=== PATIENT | female | born 1940 | race Caucasian/White ===

== ENCOUNTER 2023-03-02 10:27 | Observation (INO) | payer MEDICARE, SELFPAY ==
[2023-03-02] VITALS (14 sets, daily range): BP systolic 108–200; BP diastolic 68–110; PULSE 55–79; RESP 16–20; TEMP 36.1–36.8; O2SAT 93–98; BMI 29.5
--- NOTE | 2023-03-02 10:34 | ECG_ITS ---
[facility] Test Date: 2023-03-02 Pat Name: Aaron Pruett Department: Room: Gender: Female [employer] Technician: : 1940 Requested By: Rivera Savage Order Number: [id number] Olaf MD: Manfred Spencer M.D. Measurements Intervals [place] Rate: 67 P: 45 NH: 159 QRS: 33 QRSD: 89 T: 40 QT: 402 QTc: 427 Interpretive Statements SINUS RHYTHM LOW QRS VOLTAGE IN PRECORDIAL LEADS [QRS DEFLECTION < 1.0 mV IN CHEST LEADS] MINIMAL ST DEPRESSION [0.025+ mV ST DEPRESSION] Compared to ECG 03/30/2015 14:41:57 Low QRS voltage now present ST (T wave) deviation now present Short NH interval no longer present Electronically Signed On 03-02-2023 10:57:03 CDT by Manfred Spencer M.D. [id number]
--- NOTE | 2023-03-02 10:34 | CTR_ITS ---
PROCEDURE INFORMATION: Exam: CTA Head With Contrast, Arteriography Exam date and time: 03/02/2023 10:43 AM Age: 82 years old Clinical indication: Stroke-like symptoms; Speech disturbance; Additional info: CVA TECHNIQUE: Imaging protocol: Computed tomographic angiography of the head with contrast. Exam focused on the arteries. 3D rendering (Not supervised by radiologist): MIP and/or 3D reconstructed images were created by the technologist. Radiation optimization: All CT scans at this facility use at least one of these dose optimization techniques: automated exposure control; mA and/or kV adjustment per patient size (includes targeted exams where dose is matched to clinical indication); or iterative reconstruction. Contrast material: OMNI 350; Contrast volume: 100 ml; Contrast route: INTRAVENOUS (IV); REPORTING DATA: Count of CT and Cardiac NM exams in prior 12 months: This patient has received 0 known CTs and 0 known cardiac nuclear medicine studies in the 12 months prior to the current study. COMPARISON: CT head thrombolytic [id number] 03/02/2023 10:37 AM RADIATION DOSE METRICS: Total DLP (mGy-cm): 428.45 FINDINGS: ANTERIOR CIRCULATION: Right internal carotid artery: Intracranial segment is patent with no significant stenosis. No aneurysm. Right middle cerebral artery: No occlusion or significant stenosis. No aneurysm. Right anterior cerebral artery: No occlusion or significant stenosis. No aneurysm. Left internal carotid artery: Intracranial segment is patent with no significant stenosis. No aneurysm. Left middle cerebral artery: No occlusion or significant stenosis. No aneurysm. Left anterior cerebral artery: No occlusion or significant stenosis. No aneurysm. POSTERIOR CIRCULATION: Right vertebral artery: No occlusion or significant stenosis. No aneurysm. Left vertebral artery: No occlusion or significant stenosis. No aneurysm. Basilar artery: No occlusion or significant stenosis. No aneurysm. Right posterior cerebral artery: No occlusion or significant stenosis. No aneurysm. Left posterior cerebral artery: No occlusion or significant stenosis. No aneurysm. Brain: Unchanged prominent brain sulci seen, related to the patient's age. Associated unchanged [id number] nonspecific periventricular white matter low attenuation areas.No definite mass, mass effect, or midline shift. Cerebral ventricles: Unchanged mildly dilated ventricles are seen. This may be related to the generalized brain parenchymal atrophy or could be related to normal pressure hydrocephalus. Recommend correlation with clinical exam findings and neurological findings. CSF nuclear cisternogram may be performed for complete assessment, if there is clinical concern. Bones/joints: Unremarkable. No acute fracture. Soft tissues: Unremarkable. PROCEDURE INFORMATION: Exam: CTA Neck With Contrast Exam date and time: 03/02/2023 10:43 AM Age: 82 years old Clinical indication: Stroke-like symptoms; Speech disturbance; Additional info: CVA TECHNIQUE: Imaging protocol: Computed tomographic angiography of the neck with contrast. 3D rendering (Not supervised by radiologist): MIP and/or 3D reconstructed images were created by the technologist. Radiation optimization: All CT scans at this facility use at least one of these dose optimization techniques: automated exposure control; mA and/or kV adjustment per patient size (includes targeted exams where dose is matched to clinical indication); or iterative reconstruction. Contrast material: OMNI 350; Contrast volume: 100 ml; Contrast route: INTRAVENOUS (IV); REPORTING DATA: Count of CT and Cardiac NM exams in prior 12 months: This patient has received 0 known CTs and 0 known cardiac nuclear medicine studies in the 12 months prior to the current study. COMPARISON: CT head thrombolytic [id number] 03/02/2023 10:37 AM RADIATION DOSE METRICS: Total DLP (mGy-cm): 428.45 FINDINGS: Right common carotid artery: No stenosis. No dissection or occlusion. Right internal carotid artery: Mild bulb calcified and soft plaque. No hemodynamically significant stenosis of the extracranial segment by NASCET criteria. No dissection or occlusion. Right external carotid artery: No occlusion or stenosis of the origin. Left common carotid artery: No stenosis. No dissection or occlusion. Left internal carotid artery: Mild bulb calcified and soft plaque. No hemodynamically significant stenosis of the extracranial segment by NASCET criteria. No dissection or occlusion. Left external carotid artery: No occlusion or stenosis of the origin. Right vertebral artery: No stenosis. No dissection or occlusion. Left vertebral artery: No stenosis. No dissection or occlusion. Soft tissues: Normal. No significant soft tissue swelling. Bones/joints: No acute fracture. CT/CT angio headneck* [id number] IMPRESSION: 1. No large vessel stenosis or occlusion. 2. Chronic changes, as noted above. IMPRESSION: No stenosis or occlusion. REFERENCES: NASCET CRITERIA. The degree of stenosis in the cervical segment of the internal carotid artery is based on NASCET criteria. Normal is no stenosis. Mild is less than 50% stenosis. Moderate is 50-69% stenosis. Severe is 70% to 99% stenosis. Total occlusion is no detectable patent lumen.
--- NOTE | 2023-03-02 10:34 | CTR_ITS ---
PROCEDURE INFORMATION: Exam: CT Head Without Contrast Exam date and time: 03/02/2023 10:37 AM Age: 82 years old Clinical indication: Stroke-like symptoms; Speech disturbance; Additional info: Symptoms of acute stroke TECHNIQUE: Imaging protocol: Computed tomography of the head without contrast. Radiation optimization: All CT scans at this facility use at least one of these dose optimization techniques: automated exposure control; mA and/or kV adjustment per patient size (includes targeted exams where dose is matched to clinical indication); or iterative reconstruction. Other technique: STROKE PROTOCOL was implemented. REPORTING DATA: Count of CT and Cardiac NM exams in prior 12 months: This patient has received 0 known CTs and 0 known cardiac nuclear medicine studies in the 12 months prior to the current study. COMPARISON: No relevant prior studies available. RADIATION DOSE METRICS: Total DLP (mGy-cm): 1046.98 FINDINGS: Brain: Mildly prominent brain sulci seen, related to the patient's age. Associated patchy [id number]-[id number] nonspecific periventricular white matter low attenuation areas. Some tiny bilateral basal ganglion old lacunar infarcts. There are no intracranial masses, mass effect or midline shift. There is no cerebral edema. There is no subarachnoid hemorrhage. There are no intra-or extra-axial fluid collections, intraventricular or intraparenchymal hemorrhage. No definite areas of low attenuation or wolfe-white matter junction obscuration seen on the noncontrast CT to suggest a subacute stroke - although the underlying white matter changes limit assessment. Cerebral ventricles: Mildly dilated ventricles are seen. This may be related to the generalized brain parenchymal atrophy or could be related to normal pressure hydrocephalus. Recommend correlation with clinical exam findings and neurological findings. CSF nuclear cisternogram may be performed for complete assessment, if there is clinical concern. The suprasellar and basilar cisterns appear unremarkable. Paranasal sinuses: The visualized sinuses are unremarkable. Mastoid air cells: The visualized mastoids are unremarkable. Orbital cavities: The visualized orbits are unremarkable. Bones/joints: No definite acute osseous or skull abnormalities seen. Soft tissues: Unremarkable. Notes: If there is further clinical concern for intracranial pathology, MRI of the brain may be performed for further assessment. CT/CT head thrombolytic [id number] IMPRESSION: 1. No non-contrast CT evidence of intracranial hemorrhage, masses or definite subacute stroke. MRI may be performed, if there is further clinical concern. 2. Chronic changes, as noted above. Mildly dilated ventricles, as noted above. ASSESSMENT: ASPECTS ([place] Stroke Program Early CT Score) is 10.
--- NOTE | 2023-03-02 10:34 | XRR_ITS ---
PROCEDURE INFORMATION: Exam: XR Chest Exam date and time: 03/02/2023 10:48 AM Age: 82 years old Clinical indication: Dyspnea; Additional info: CVA TECHNIQUE: Imaging protocol: Radiologic exam of the chest. Views: 1 view. COMPARISON: CT angio headneck* [id number] 03/02/2023 10:43 AM FINDINGS: Lungs: The exam appears to be an expiratory view with mild accentuation of the pulmonary vascularity. There are no confluent interstitial or airspace opacities. Age-related interstitial prominence is seen in the lungs. Pleural spaces: There are no pleural effusions or pneumothorax. Heart/Mediastinum: The heart size is normal. There is a mildly tortuous thoracic aorta. The trachea is in the midline. Bones/joints: No acute abnormalities. XR/XR chest 1V portable [id number] IMPRESSION: No confluent infiltrates in the lungs.
[2023-03-02] MEDS: iohexol 350 mg/mL 500 mL Btl (per mL) IV (10:46)
--- NOTE | 2023-03-02 10:46 | ED_ITS ---
HPI - Neuro Symptoms/Deficit General: Chief Complaint: Neuro Symptoms/Deficit Stated Complaint: Stoke like symptoms Time Seen by Provider: 03/02/23 10:30 Source: patient Mode of arrival: ambulatory Limitations: no limitations History of Present Illness: 82-year-old female states she went to bed last night at 1030 states when she woke up she noticed that she is having a hard time speaking. She states she is just been having a hard time finding words along with some slurred speech and her speech is slightly slurred here. She been able to ambulate she denies any weakness denies any vision changes. States she has had a mild headache today as well. Has a history of hypertension she states that she just took her blood pressure medicine she is hypertensive. Denies any chest pain. Associated symptoms: Reports headache(s); Deny chest pain, nausea or vomiting Review of Systems Const: Denies: fever(s), chills, body aches or change in appetite Eyes: Denies: blurry vision or eye discomfort ENMT: Denies: throat pain or dental pain Card: Denies: chest pain Resp: Denies: dyspnea GI: Denies: abdominal pain, nausea, vomiting or diarrhea Musc: Denies: neck pain or back pain Skin/Breast: Denies: rash Neuro: Reports: headache(s) and Slurred speech present NIH stroke score NIHSS: Level Of Consciousness - 1a: 0 Level Of Consciousness Questions - 1b: Both Correct Level Of Consciousness Commands - 1c: Both Correct Best Gaze - 2: Normal Visual Mcclain - 3: No Visual Loss Facial Palsy - 4: Normal Motor Arm Right - 5: No Drift Motor Arm Left - 5: No Drift Motor Leg Right - 6: No Drift Motor Leg Left - 6: No Drift Limb Ataxia - 7: Absent Sensory - 8: Normal Best Language - 9: Mild/Moderate Aphasia Dysarthia - 10: Mild/Moderate Dysarthia Extinction And Inattention - 11: 0 Score: Total Score: 2 Physical Exam Const: COMMON NORMALS: no acute distress, patient oriented x3 and healthy appearing HENMT: COMMON NORMALS: normocephalic and atraumatic HEAD & SCALP: normocephalic and atraumatic Eye: COMMON NORMALS: Equal, round and reactive pupils present and EOMs intact bilaterally PUPIL: Yes Equal, round and reactive pupils present Neck/C-Spine: COMMON NORMALS: full ROM and supple Chest: COMMONS NORMALS: normal inspection of the chest and normal palpation of entire chest wall Resp: COMMON NORMALS: normal respiratory effort, No retractions, No use of accessory muscles and clear to auscultation bilaterally AUSCULTATION: clear to auscultation bilaterally Cardio: COMMON NORMALS: regular rate, regular rhythm and No murmurs present (Cardio) RATE: regular rate RHYTHM: regular rhythm GI: COMMON NORMALS: Normal to inspection, nondistended, normoactive bowel sounds present, Soft to palpation, non-tender and no masses PALPATION: Yes Soft to palpation Extremity: COMMON NORMALS: normal to inspection and full ROM Neuro: COMMON NORMALS: patient oriented x3, moves all extremities and no focal motor deficits CRANIAL NERVES: Yes CN normal except as noted SPEECH: abnormal speech Details: slurred MOTOR EXAM: 5/5 motor strength present throughout Psych: COMMON NORMALS: mental status grossly normal, Normal thought process present and cooperative THOUGHT PROCESS: Normal thought process present Skin: COMMON NORMALS: no rashes or lesions noted and no wounds GENERAL SKIN EXAM: no rashes or lesions noted Course Vital Signs: Vital signs: Vital Signs Temperature 97.8 F 03/02/23 10:29 Pulse Rate 59 L 03/02/23 11:31 Respiratory Rate 20 H 03/02/23 11:31 Blood Pressure 156/78 03/02/23 11:31 Pulse Oximetry 96 03/02/23 11:31 Oxygen Delivery Me thod Room Air 03/02/23 11:31 MDM - Neuro Symptoms/Deficit Medical Decision Making Patient presents here with slurred speech possible stroke she is not a tPA candidate her last known normal was 10:[address] here are normal she has had some improvement of her symptoms but still some mild slurred speech spoke to hospitalist will admit for observation Medical Records I reviewed the patient's medical records. Lab Data I reviewed the patient's lab results. 03/02/23 10:40 03/02/23 10:40 Radiology Impressions Chest X-Ray 03/02/23 10:34 IMPRESSION: No confluent infiltrates in the lungs. Head CT 03/02/23 10:34 IMPRESSION: 1. No non-contrast CT evidence of intracranial hemorrhage, masses or definite subacute stroke. MRI may be performed, if there is further clinical concern. 2. Chronic changes, as noted above. Mildly dilated ventricles, as noted above. ASSESSMENT: ASPECTS ([place] Stroke Program Early CT Score) is 10. Head/Neck CTA 03/02/23 10:34 IMPRESSION: 1. No large vessel stenosis or occlusion. 2. Chronic changes, as noted above. IMPRESSION: No stenosis or occlusion. REFERENCES: NASCET CRITERIA. The degree of stenosis in the cervical segment of the internal carotid artery is based on NASCET criteria. Normal is no stenosis. Mild is less than 50% stenosis. Moderate is 50-69% stenosis. Severe is 70% to 99% stenosis. Total occlusion is no detectable patent lumen. Laboratory Results WBC 7.34 10^3/uL (3.29-11.43) 03/02/23 10:40 RBC 4.53 10^6/uL (3.85-5.65) 03/02/23 10:40 Hgb 14.10 g/dL (11.27-16.99) 03/02/23 10:40 Hct 41.7 % (36-47) 03/02/23 10:40 MCV 92.1 fl (85-98) 03/02/23 10:40 MCH 31.1 pg (27-33) 03/02/23 10:40 MCHC 33.8 g/dL (30-55) 03/02/23 10:40 RDW 12.9 % (12.1-15.1) 03/02/23 10:40 Plt Count 192 10^3/cmm (157-399) 03/02/23 10:40 MPV 9.7 fL (7.4-10.4) 03/02/23 10:40 Neut % (Auto) 57.8 % 03/02/23 10:40 Lymph % (Auto) 27.4 % 03/02/23 10:40 [place] % (Auto) 11.6 % 03/02/23 10:40 Eos % (Auto) 2.3 % 03/02/23 10:40 Baso % (Auto) 0.5 % 03/02/23 10:40 Neut # (Auto) 4.24 10^3/uL (1.8-7.7) 03/02/23 10:40 Lymph # (Auto) 2.0 10^3/uL (0.8-4.8) 03/02/23 10:40 [place] # (Auto) 0.9 10^3/uL (0.2-0.9) 03/02/23 10:40 Eos # (Auto) 0.2 10^3/uL (0.0-0.8) 03/02/23 10:40 Baso # (Auto) 0.0 10^3/uL (0.0-0.1) 03/02/23 10:40 Nucleated RBC % (auto) 0 % 03/02/23 10:40 Nucleated RBCs # 0.0 /100WBC 03/02/23 10:40 PT 13.50 SECONDS (12.1-14.9) 03/02/23 10:40 INR 1.00 (0.8-1.2) 03/02/23 10:40 APTT 26.9 SECONDS (23.9-36.7) 03/02/23 10:40 Sodium 141 mmol/L (136-145) 03/02/23 10:40 Potassium 4.4 mmol/L (3.5-5.1) 03/02/23 10:40 Chloride 104 mmol/L (98-107) 03/02/23 10:40 Carbon Dioxide 28 mmol/L (22-29) 03/02/23 10:40 Anion Gap 13.4 (5-19) 03/02/23 10:40 BUN 20 mg/dL (8-23) 03/02/23 10:40 Creatinine 0.8 mg/dL (0.5-0.9) 03/02/23 10:40 GFR Calculation Not Reportable 03/02/23 10:40 Glucose 101 mg/dL (65-115) 03/02/23 10:40 Calculated Osmolality 295 mOsm/kg (285-295) 03/02/23 10:40 Calcium 9.2 mg/dL (8.5-10.5) 03/02/23 10:40 Total Bilirubin 0.9 mg/dL (0.15-1.2) 03/02/23 10:40 AST 36 U/L (0-32) H 03/02/23 10:40 ALT 30 U/L (0-33) 03/02/23 10:40 Alkaline Phosphatase 89 U/L (35-105) 03/02/23 10:40 Total Protein 6.6 g/dL (6.6-8.7) 03/02/23 10:40 Albumin 4.4 g/dL (3.5-5.2) 03/02/23 10:40 Globulin 2.2 g/dL (1.3-4.6) 03/02/23 10:40 Urine Color Straw (Yellow) 03/02/23 11:25 Urine Appearance Clear (CLEAR) 03/02/23 11:25 Urine pH 7 (5-7) 03/02/23 11:25 Ur Specific [place] 1.000 (1.005-1.030) L 03/02/23 11:25 Urine Protein Neg (Negative) 03/02/23 11:25 Urine Glucose (UA) Norm (Normal) 03/02/23 11:25 Urine Ketones Negative (Negative) 03/02/23 11:25 Urine Blood 2+ (Negative) H 03/02/23 11:25 Urine Nitrate Negative (Negative) 03/02/23 11:25 Urine Bilirubin Neg (Negative) 03/02/23 11:25 Urine Urobilinogen Norm mg/dL (Negative) 03/02/23 11:25 Ur Leukocyte Esterase Negative (Negative) 03/02/23 11:25 Urine RBC 0-4 /hpf (0-2) H 03/02/23 11:25 Urine WBC None /hpf (0-5) 03/02/23 11:25 Ur Squamous Epith Cells Rare /hpf (0-5) 03/02/23 11:25 Amorphous Sediment Not Reportable 03/02/23 11:25 Urine Bacteria Trace /hpf (NONE) 03/02/23 11:25 Urine Opiates Screen Negative ng/mL (Negative) 03/02/23 11:25 Ur Barbiturates Screen Negative ng/mL (Negative) 03/02/23 11:25 Ur Phencyclidine Scrn Negative ng/mL (Negative) 03/02/23 11:25 Ur Amphetamines Screen Negative ng/mL (Negative) 03/02/23 11:25 U Benzodiazepines Scrn Negative ng/mL (Negative) 03/02/23 11:25 Urine Cocaine Screen Negative ng/mL (Negative) 03/02/23 11:25 U Marijuana (THC) Screen Negative ng/mL (Negative) 03/02/23 11:25 EKG Data EKG 1: I personally reviewed and interpreted this EKG as follows: EKG interpretation date: 03/02/23 EKG interpretation time: 10:52 Interpretation: nsr hr [address] or t wave abnormalities qrs 89 qtc 418 Discharge Plan Discharge Patient Disposition: Admitted As Inpatient Clinical Impression: Cerebrovascular accident Condition: Stable Prescriptions: No Action losartan 50 mg tablet 50 mg PO DAILY prednisolone acetate 1 % drops,suspension 1 drp ophthalmic (eye) 6XD metoprolol tartrate 50 mg Tablet 25 mg PO BID bromfenac 0.09 % drops 1 drp ophthalmic (eye) DAILY hydrochlorothiazide 12.5 mg tablet 12.5 mg PO DAILY Patient Instructions: Opioid Safety, Pain Management Coding Level of Care Code ED Cashier Wrapper for Raya Bustillo
[2023-03-02 10:50] LABS: Basophils % 0.5 %; Eosinophils # 0.2 10^3/uL (0.0-0.8); Eosinophils % 2.3 %; Hematocrit 41.7 % (36-47); Lymphocytes % 27.4 %; Mean Corpuscular HGB Conc 33.8 g/dL (30-55); Mean Corpuscular Hemoglobin 31.1 pg (27-33); Mean Corpuscular Volume 92.1 fl (85-98); Mean Platelet Volume 9.7 fL (7.4-10.4); Monocytes # 0.9 10^3/uL (0.2-0.9); Monocytes % 11.6 %; Neutrophils # 4.24 10^3/uL (1.8-7.7); Neutrophils % 57.8 %; Nucleated Red Blood Cells % 0 %; Platelet Count 192 10^3/cmm (157-399); Red Blood Count 4.53 10^6/uL (3.85-5.65); Red Cell Distribution Width 12.9 % (12.1-15.1); White Blood Count 7.34 10^3/uL (3.29-11.43)
[2023-03-02 11:06] LABS: Partial Thromboplastin Time 26.9 SECONDS (23.9-36.7)
[2023-03-02 11:13] LABS: Alanine Aminotransferase 30 U/L (0-33); Albumin Level 4.4 g/dL (3.5-5.2); Alkaline Phosphatase 89 U/L (35-105); Anion Gap 13.4 (5-19); Aspartate Amino Transferase 36 U/L (0-32); Blood Urea Nitrogen 20 mg/dL (8-23); Calcium 9.2 mg/dL (8.5-10.5); Carbon Dioxide 28 mmol/L (22-29); Chloride 104 mmol/L (98-107); Globulin 2.2 g/dL (1.3-4.6); Glucose 101 mg/dL (65-115); Osmolality Calculated 295 mOsm/kg (285-295); Potassium 4.4 mmol/L (3.5-5.1); Sodium 141 mmol/L (136-145); Total Bilirubin 0.9 mg/dL (0.15-1.2); Total Protein 6.6 g/dL (6.6-8.7)
[2023-03-02 11:47] LABS: Amphetamines Screen Urine Negative (Negative); Barbiturates Screen Urine Negative (Negative); Benzodiazepines Screen Urine Negative (Negative); Cocaine Screen Urine Negative (Negative); Opiate Screen Urine Negative (Negative); PCP Screen Urine Negative (Negative); THC Screen Urine Negative (Negative)
[2023-03-02 11:48] LABS: Add Urine Microscopic? YES; Bilirubin Urine Neg (Negative); Blood Urine 2+ (Negative); Glucose Urine UA Norm (Normal); Ketones Urine Negative (Negative); Leukocyte Esterase Urine Negative (Negative); Nitrate Urine Negative (Negative); Protein Urine Neg (Negative); Urine Appearance Clear (CLEAR); Urine Color Straw (Yellow); Urobilinogen Urine Norm (Negative); pH Urine 7 (5-7)
[2023-03-02 11:49] LABS: Add Urine Culture? No; Bacteria Urine TRACE /hpf; RBC Urine 0-4 /hpf (0-2); Squamous Epithelial Cell Urine RARE /hpf (0-5)
--- NOTE | 2023-03-02 15:01 | USCV_ITS ---
Seble Aaron Age: 82 Gender: F : 1940 Exam Date: 03/02/2023 15:32 Ordering Phys: Talita Jin MD Technologist: Faizan Murrieta Exam Location: [facility] [place] Indication: stroke BP: 156 / 78 HR: 58 Rhythm: Sinus Technical Quality: Adequate MEASUREMENTS (Male / Female) Normal Values 2D ECHO LVOT Diameter 2.0 cm LV Ejection Fraction MOD 2C 65.5 % LV Ejection Fraction 2C AL 66.6 % LA Diameter 3.7 cm LA Width 3.7 cm LA Height 5.2 cm RA Width 3.7 cm RA Height 4.7 cm Aorta at Sinotubular Diameter 2.3 cm IVC Diameter 1.9 cm M-MODE Aortic Annulus Diameter 2.3 cm LA Ao Ratio MM 1.6 MV E Point Septal Separation 0.5 cm DOPPLER AV Peak Velocity 139.0 cm/s LVOT Peak Velocity 84.0 cm/s AV Area Cont Eq vti 2.3 cm squared AV Area Cont Eq pk 1.9 cm squared MV Peak Velocity 110.0 cm/s MV Area PHT 5.0 cm squared Mitral E to A Ratio 1.4 MV E' Velocity 58.5 cm/s Mitral E to MV E' Ratio 11.9 Mitral E to LV E' Lateral Ratio 9.9 Mitral E to LV E' Septal Ratio 14.9 TR Peak Velocity 301.7 cm/s TR Peak Gradient 36.4 mmHg TR Mean Velocity 249.8 cm/s TR Mean Gradient 25.9 mmHg TR Velocity Time Integral 84.2 cm Right Atrial Pressure 3.0 mmHg Pulmonary Artery Systolic Pressu 39.4 mmHg PV Peak Velocity 77.0 cm/s RV Acceleration Time 0.1 s RV Ejection Time 0.3 s RV AcT/ET 0.4 FINDINGS Left Ventricle Normal left ventricular size, systolic function and wall thickness, with no regional wall motion abnormalities. Grade I/IV diastolic dysfunction (abnormal relaxation filling pattern), normal to mildly elevated filling pressures. Left ventricular ejection fraction is estimated at 60 %. Right Ventricle Normal right ventricular size and systolic function. Mild pulmonary hypertension, RVSP 39.4 mmHg. Right Atrium The right atrium is normal in size. Left Atrium The left atrium is normal in size. Mitral Valve Structurally normal mitral valve. Mild-moderate mitral valve regurgitation. Aortic Valve Structurally normal aortic valve without significant sclerosis or stenosis. There is no aortic regurgitation. Tricuspid Valve Structurally normal tricuspid valve without significant stenosis or regurgitation. Pulmonary artery systolic pressure is normal. Pulmonic Valve Pulmonic valve not well visualized. Pericardium Normal pericardium without effusion. Aorta Normal ascending aorta dimension. IVC The inferior vena cava appears normal. CONCLUSIONS Normal left ventricular size, systolic function and wall thickness, with no regional wall motion abnormalities. Grade I/IV diastolic dysfunction (abnormal relaxation filling pattern), normal to mildly elevated filling pressures. Left ventricular ejection fraction is estimated at 60 %. Normal right ventricular size and systolic function. Mild pulmonary hypertension, RVSP 39.4 mmHg. Structurally normal mitral valve. Mild-moderate mitral valve regurgitation. Previous study was done 06/25/2018. There has been no change with the exception of the mitral regurgitation. Dr. Manfred Spencer MD (Electronically Signed) Final Date: 02 March 2023 17:21 S
--- NOTE | 2023-03-02 15:01 | PM.HP ---
Providers/Chief Complaint Admitting Physician: Talita Jin MD Primary Care Provider: Zunilda Og Chief Complaint: Stoke like symptoms History of Present Illness Aaron Pruett is a 82 year old female with a past medical history of hypertension who presented to the hospital today with chief complaints of strokelike symptoms. She states that she was in her usual state of health until she went to bed at 1030 last night and then when she woke up she noticed she had a dysarthria. She had word finding difficulty and slurred speech. She denies any focal weakness in her arms or legs. She has a mild headache but otherwise feels normal. Denies any other recent illnesses. Shortly after arrival at , her symptoms appear to have resolved. Currently she has no deficits, feels like she is bacj at her baseline. She suspects she has A fib as she has tachycardia up to 180-200 bpm occassionally which is symptomatic for her. She has not been formally diagnosed with A fib and is not on any a/c. She states she was seen in the past by Dr. Penn for her elevated HR but i'm unable to find record of the same. No past h/o stroke. No past h/o CAD. Review of Systems General: Reports: 10 or more systems reviewed and unremarkable except in HPI and below Const: Denies: fever(s), chills or body aches Eyes: Denies: change in vision, blurry vision or photophobia ENMT: Reports: hoarseness; Denies: throat pain, enlarged tonsils, odynophagia or nasal congestion Card: Denies: chest pain, palpitations, irregular heart rhythm, edema, swelling of feet/ankles, lightheadedness, pre-syncope, dyspnea on exertion or orthopnea Resp: Denies: dyspnea, productive cough, non-productive cough, wheezing, stridor, pain on inspiration, change in phlegm color, hemoptysis or chest congestion GI: Denies: abdominal pain, nausea, vomiting, hematemesis, coffee ground emesis, dysphagia, heartburn, diarrhea, constipation, GI cramping, change in stool character, hematochezia or melena : Denies: flank pain, difficulty voiding, dysuria, urinary frequency, urinary urgency, urinary hesitancy or hematuria Musc: Denies: neck pain, back pain, extremity pain, joint swelling, joint warmth or deformity Neuro: Denies: headache(s), numbness in extremities, weakness in extremities, sensory changes, difficulty walking, frequent falls, dizziness, vertigo, behavioral changes, Slurred speech present or seizure-like activity Psych: Denies: anxiety, depression, suicidal ideation or homicidal ideation Endo: Denies: polyuria, polydipsia, tired all the time, cold intolerance or hot flashes Kelvin/Lymph: Denies: easy bruising or easy bleeding Medications/Allergies Home Medications Medication Instructions Recorded Confirmed Last Taken Type bromfenac 0.09 % eye drops 1 drp ophthalmic (eye) DAILY 03/02/23 03/02/23 Unknown History hydrochlorothiazide 12.5 mg tablet 12.5 mg PO DAILY 03/02/23 03/02/23 Unknown History losartan 50 mg tablet 50 mg PO DAILY 03/02/23 03/02/23 Unknown History metoprolol tartrate 50 mg tablet 25 mg PO BID 03/02/23 03/02/23 Unknown History prednisolone acetate 1 % eye 1 drp ophthalmic (eye) 6XD 03/02/23 03/02/23 Unknown History drops,suspension Allergies Allergy/AdvReac Type Severity Reaction Status Date / Time No Known Allergies Allergy Verified 03/02/23 10:35 PFSH Acute PFSH: Medical History (Updated 03/02/23 @ 15:12 by Talita Jin MD) Hypertension Vitals/I&O/Wt Last Vital Signs Temp 97.8 F 03/02/23 10:29 Pulse 79 03/02/23 14:18 Resp 20 H 03/02/23 11:31 BP 156/78 03/02/23 11:31 Pulse Ox 93 03/02/23 14:18 O2 Del Method Room Air 03/02/23 14:18 Weight last 48 hrs Weight 83.007 kg Physical Exam Narrative: General: No acute distress, AO x3 HEENT: PERRLA, pupils bilaterally equal and reactive, pallors not present Chest: Normal vesicular breath sounds, no added sounds, equal good air entry bilaterally CVS: S1-S2 regular, no murmurs, no tachycardia, no gallops, no rubs Abdomen: Soft, nontender, no organomegaly, bowel sounds present Neuro: no focal deficits currently Data 03/02/23 10:40 03/02/23 10:40 Other data: Radiology Impressions Chest X-Ray 03/02/23 10:34 IMPRESSION: No confluent infiltrates in the lungs. Head CT 03/02/23 10:34 IMPRESSION: 1. No non-contrast CT evidence of intracranial hemorrhage, masses or definite subacute stroke. MRI may be performed, if there is further clinical concern. 2. Chronic changes, as noted above. Mildly dilated ventricles, as noted above. ASSESSMENT: ASPECTS ([place] Stroke Program Early CT Score) is 10. Head/Neck CTA 03/02/23 10:34 IMPRESSION: 1. No large vessel stenosis or occlusion. 2. Chronic changes, as noted above. IMPRESSION: No stenosis or occlusion. REFERENCES: NASCET CRITERIA. The degree of stenosis in the cervical segment of the internal carotid artery is based on NASCET criteria. Normal is no stenosis. Mild is less than 50% stenosis. Moderate is 50-69% stenosis. Severe is 70% to 99% stenosis. Total occlusion is no detectable patent lumen. Laboratory Results WBC 7.34 10^3/uL (3.29-11.43) 03/02/23 10:40 RBC 4.53 10^6/uL (3.85-5.65) 03/02/23 10:40 Hgb 14.10 g/dL (11.27-16.99) 03/02/23 10:40 Hct 41.7 % (36-47) 03/02/23 10:40 MCV 92.1 fl (85-98) 03/02/23 10:40 MCH 31.1 pg (27-33) 03/02/23 10:40 MCHC 33.8 g/dL (30-55) 03/02/23 10:40 RDW 12.9 % (12.1-15.1) 03/02/23 10:40 Plt Count 192 10^3/cmm (157-399) 03/02/23 10:40 MPV 9.7 fL (7.4-10.4) 03/02/23 10:40 Neut % (Auto) 57.8 % 03/02/23 10:40 Lymph % (Auto) 27.4 % 03/02/23 10:40 [place] % (Auto) 11.6 % 03/02/23 10:40 Eos % (Auto) 2.3 % 03/02/23 10:40 Baso % (Auto) 0.5 % 03/02/23 10:40 Neut # (Auto) 4.24 10^3/uL (1.8-7.7) 03/02/23 10:40 Lymph # (Auto) 2.0 10^3/uL (0.8-4.8) 03/02/23 10:40 [place] # (Auto) 0.9 10^3/uL (0.2-0.9) 03/02/23 10:40 Eos # (Auto) 0.2 10^3/uL (0.0-0.8) 03/02/23 10:40 Baso # (Auto) 0.0 10^3/uL (0.0-0.1) 03/02/23 10:40 Nucleated RBC % (auto) 0 % 03/02/23 10:40 Nucleated RBCs # 0.0 /100WBC 03/02/23 10:40 PT 13.50 SECONDS (12.1-14.9) 03/02/23 10:40 INR 1.00 (0.8-1.2) 03/02/23 10:40 APTT 26.9 SECONDS (23.9-36.7) 03/02/23 10:40 Sodium 141 mmol/L (136-145) 03/02/23 10:40 Potassium 4.4 mmol/L (3.5-5.1) 03/02/23 10:40 Chloride 104 mmol/L (98-107) 03/02/23 10:40 Carbon Dioxide 28 mmol/L (22-29) 03/02/23 10:40 Anion Gap 13.4 (5-19) 03/02/23 10:40 BUN 20 mg/dL (8-23) 03/02/23 10:40 Creatinine 0.8 mg/dL (0.5-0.9) 03/02/23 10:40 GFR Calculation Not Reportable 03/02/23 10:40 Glucose 101 mg/dL (65-115) 03/02/23 10:40 Calculated Osmolality 295 mOsm/kg (285-295) 03/02/23 10:40 Calcium 9.2 mg/dL (8.5-10.5) 03/02/23 10:40 Total Bilirubin 0.9 mg/dL (0.15-1.2) 03/02/23 10:40 AST 36 U/L (0-32) H 03/02/23 10:40 ALT 30 U/L (0-33) 03/02/23 10:40 Alkaline Phosphatase 89 U/L (35-105) 03/02/23 10:40 Total Protein 6.6 g/dL (6.6-8.7) 03/02/23 10:40 Albumin 4.4 g/dL (3.5-5.2) 03/02/23 10:40 Globulin 2.2 g/dL (1.3-4.6) 03/02/23 10:40 Urine Color Straw (Yellow) 03/02/23 11:25 Urine Appearance Clear (CLEAR) 03/02/23 11:25 Urine pH 7 (5-7) 03/02/23 11:25 Ur Specific [place] 1.000 (1.005-1.030) L 03/02/23 11:25 Urine Protein Neg (Negative) 03/02/23 11:25 Urine Glucose (UA) Norm (Normal) 03/02/23 11:25 Urine Ketones Negative (Negative) 03/02/23 11:25 Urine Blood 2+ (Negative) H 03/02/23 11:25 Urine Nitrate Negative (Negative) 03/02/23 11:25 Urine Bilirubin Neg (Negative) 03/02/23 11:25 Urine Urobilinogen Norm mg/dL (Negative) 03/02/23 11:25 Ur Leukocyte Esterase Negative (Negative) 03/02/23 11:25 Urine RBC 0-4 /hpf (0-2) H 03/02/23 11:25 Urine WBC None /hpf (0-5) 03/02/23 11:25 Ur Squamous Epith Cells Rare /hpf (0-5) 03/02/23 11:25 Amorphous Sediment Not Reportable 03/02/23 11:25 Urine Bacteria Trace /hpf (NONE) 03/02/23 11:25 Urine Opiates Screen Negative ng/mL (Negative) 03/02/23 11:25 Ur Barbiturates Screen Negative ng/mL (Negative) 03/02/23 11:25 Ur Phencyclidine Scrn Negative ng/mL (Negative) 03/02/23 11:25 Ur Amphetamines Screen Negative ng/mL (Negative) 03/02/23 11:25 U Benzodiazepines Scrn Negative ng/mL (Negative) 03/02/23 11:25 Urine Cocaine Screen Negative ng/mL (Negative) 03/02/23 11:25 U Marijuana (THC) Screen Negative ng/mL (Negative) 03/02/23 11:25 A&P Assessment and plan (1) Cerebrovascular accident: Admit the patient to [facility] for close neuro monitoring She is not a tPA candidate due to unknown onset of symptoms Continue telemetry monitoring on the unit to evaluate for underlying arrhythmias.She reports HR up to 180-200 at home. May need event monitor at discharge CT head unremarkable CTA head and neck without any major vessel occlusion. Echocardiogram ordered and pending Start aspirin 81 mg daily Atorvastatin 40 mg daily Holding home dose of antihypertensives to allow for permissive hypertension Continue metoprolol PT OT speech therapy assessment (2) Hypertension: Holding antihypertensives to allow for permissive hypertension. Continue beta-blockers to avoid rebound tachycardia Attestations Medical Necessity Statement*: less than 2 midnight admission is anticipated for stroke/TIA management and evaluation Coding Level of Care Code Acute Code for Chg Fwd Moderate MDM includes number and complexity of problems actively addressed during encounter, amount and/or complexity of data reviewed/ordered and described risk of complication, morbidity or mortality of management as documented Diagnoses Cerebrovascular accident I63.9 Hypertension I10
[2023-03-02] MEDS: metoprolol tartrate 50 mg Tablet 25 MG PO (17:01)
--- NOTE | 2023-03-02 19:22 | PC.NURSE ---
Pt refused prednisolone eyedrops stating that she only takes them twice a day at home.
[2023-03-02] MEDS: atorvastatin 40 mg Tablet PO (20:14)
[2023-03-03 00:31] VITALS: BP 123/68; PULSE 59; RESP 19; TEMP 36.7; O2SAT 94
[2023-03-03 03:58] VITALS: BP 127/71; PULSE 60; RESP 16; TEMP 36.9; O2SAT 95
[2023-03-03 04:54] LABS: Basophils % 0.5 %; Eosinophils # 0.2 10^3/uL (0.0-0.8); Eosinophils % 2.5 %; Hematocrit 40.5 % (36-47); Lymphocytes # 2.3 10^3/uL (0.8-4.8); Lymphocytes % 35.3 %; Mean Corpuscular HGB Conc 33.6 g/dL (30-55); Mean Corpuscular Hemoglobin 31.4 pg (27-33); Mean Corpuscular Volume 93.5 fl (85-98); Mean Platelet Volume 9.9 fL (7.4-10.4); Monocytes # 0.8 10^3/uL (0.2-0.9); Monocytes % 12.4 %; Neutrophils # 3.18 10^3/uL (1.8-7.7); Neutrophils % 48.8 %; Nucleated Red Blood Cells % 0 %; Platelet Count 191 10^3/cmm (157-399); Red Blood Count 4.33 10^6/uL (3.85-5.65); White Blood Count 6.51 10^3/uL (3.29-11.43)
[2023-03-03 05:05] LABS: Estmated Average Glucose 114; Hemoglobin A1C 5.6 % (4.0-6.0)
[2023-03-03 05:15] LABS: Alanine Aminotransferase 25 U/L (0-33); Albumin Level 4.1 g/dL (3.5-5.2); Alkaline Phosphatase 76 U/L (35-105); Anion Gap 13.2 (5-19); Aspartate Amino Transferase 32 U/L (0-32); Blood Urea Nitrogen 18 mg/dL (8-23); Calcium 8.8 mg/dL (8.5-10.5); Carbon Dioxide 28 mmol/L (22-29); Chloride 106 mmol/L (98-107); Chol HDL Ratio 5.26 mg/dL (0.0-4.40); Cholesterol 205 mg/dL (0-200); Glucose 105 mg/dL (65-115); HDL Cholesterol 39 mg/dL (60-100); LDL Cholesterol Calculated 136 mg/dL (50-129); LDL HDL Ratio 3.49 RATIO (0.00-3.22); Osmolality Calculated 298 mOsm/kg (285-295); Potassium 4.2 mmol/L (3.5-5.1); Sodium 143 mmol/L (136-145); Total Protein 6.1 g/dL (6.6-8.7); Triglycerides 151 mg/dL (0-150)
[2023-03-03 06:35] VITALS: PULSE 60
[2023-03-03 08:00] VITALS: BP 151/91; PULSE 60; PULSE 70; RESP 16; TEMP 36.6; O2SAT 91; O2SAT 95
[2023-03-03] MEDS: metoprolol tartrate 50 mg Tablet 25 MG PO (09:31)
[2023-03-03] MEDS: aspirin 81 mg EC Tablet PO (09:32)
[2023-03-03 11:06] VITALS: BP 138/81; PULSE 70; RESP 15; O2SAT 94
--- NOTE | 2023-03-03 11:56 | P.DS_ITS ---
Discharge Providers Date of Admission: 03/02/23 11:32 Date of Discharge: March 03, 2023 Attending Provider at Admission: Talita Jin MD Attending Provider at Discharge: Parrish Toscano MD Primary Care Provider: Zunilda Og Diagnoses at Discharge Discharge Diagnosis (1) Cerebrovascular accident: Status: Acute (2) Hypertension: Status: Acute Reason for Visit Reason for Visit: Stoke like symptoms Hospital Course Hospital Course Aaron Pruett is a 82 year old female with a past medical history of hypertension who presented to the hospital today with chief complaints of strokelike symptoms.? She states that she was in her usual state of health until she went to bed at 1030 last night and then when she woke up she noticed she had a dysarthria.? She had word finding difficulty and slurred speech.? She denies any focal weakness in her arms or legs.? She has a mild headache but otherwise feels normal.? Denies any other recent illnesses. Shortly after arrival at , her symptoms appear to have resolved. Currently she has no deficits, feels like she is bacj at her baseline. She suspects she has A fib as she has tachycardia up to 180-200 bpm occassionally which is symptomatic for her. She has not been formally diagnosed with A fib and is not on any a/c. She states she was seen in the past by Dr. Penn for her elevated HR but i'm unable to find record of the same. No past h/o stroke. No past h/o CAD. Patient presented to [facility] for TIA, her symptoms completely resolved on admission, throughout her hospitalization she remained asymptomatic, no focal neurologic deficits, no facial droop, no slurring of her words, no visual deficits, no significant A-fib events on telemetry monitoring, she will be discharged on aspirin, statin with her blood pressure medications with a close follow-up with her primary care provider as outpatient. For her chest palpitations, possible paroxysmal atrial fibrillation events, none during her hospitalization, I will discharge her with an event monitor with a follow-up with cardiology as outpatient in a month for results. For her CVA I have discharged her with a close follow-up with neurology in 2 weeks. Patient was advised if she has any recurrent strokelike symptoms to call 911 Physical Exam Const: COMMON NORMALS: no acute distress and patient oriented x3 Resp: COMMON NORMALS: normal respiratory effort, No retractions, No use of accessory muscles and clear to auscultation bilaterally AUSCULTATION: clear to auscultation bilaterally Cardio: COMMON NORMALS: regular rate, regular rhythm, S1 normal heart sound present and S2 normal heart sound present RATE: regular rate RHYTHM: regular rhythm HEART SOUNDS: S1 normal heart sound present and S2 normal heart sound present GI: COMMON NORMALS: Normal to inspection, nondistended, normoactive bowel sounds present and non-tender Extremity: COMMON NORMALS: no pedal edema Neuro: COMMON NORMALS: patient oriented x3, CN's II-XII intact bilaterally, moves all extremities, no focal motor deficits and no sensory deficits noted Psych: COMMON NORMALS: mental status grossly normal Discharge Data Studies Completed and Pending Completed Studies During Hospitalization Category Date Time Status CT angio headneck* [id number] Stat Cat Scan 03/02/23 10:[address] head thrombolytic [id number] Stat Cat Scan 03/02/23 10:34 Completed CXRP [XR chest 1V portable [id number]] Stat Exams 03/02/23 10:34 Completed CV. echo complete* [id number] Routine Ultrasound 03/02/23 15:01 Completed Radiology Impressions Chest X-Ray 03/02/23 10:34 IMPRESSION: No confluent infiltrates in the lungs. Head CT 03/02/23 10:34 IMPRESSION: 1. No non-contrast CT evidence of intracranial hemorrhage, masses or definite subacute stroke. MRI may be performed, if there is further clinical concern. 2. Chronic changes, as noted above. Mildly dilated ventricles, as noted above. ASSESSMENT: ASPECTS ([place] Stroke Program Early CT Score) is 10. Head/Neck CTA 03/02/23 10:34 IMPRESSION: 1. No large vessel stenosis or occlusion. 2. Chronic changes, as noted above. IMPRESSION: No stenosis or occlusion. REFERENCES: NASCET CRITERIA. The degree of stenosis in the cervical segment of the internal carotid artery is based on NASCET criteria. Normal is no stenosis. Mild is less than 50% stenosis. Moderate is 50-69% stenosis. Severe is 70% to 99% stenosis. Total occlusion is no detectable patent lumen. Laboratory Results WBC 6.51 10^3/uL (3.29-11.43) 03/03/23 04:38 RBC 4.33 10^6/uL (3.85-5.65) 03/03/23 04:38 Hgb 13.60 g/dL (11.27-16.99) 03/03/23 04:38 Hct 40.5 % (36-47) 03/03/23 04:38 MCV 93.5 fl (85-98) 03/03/23 04:38 MCH 31.4 pg (27-33) 03/03/23 04:38 MCHC 33.6 g/dL (30-55) 03/03/23 04:38 RDW 13.0 % (12.1-15.1) 03/03/23 04:38 Plt Count 191 10^3/cmm (157-399) 03/03/23 04:38 MPV 9.9 fL (7.4-10.4) 03/03/23 04:38 Neut % (Auto) 48.8 % 03/03/23 04:38 Lymph % (Auto) 35.3 % 03/03/23 04:38 [place] % (Auto) 12.4 % 03/03/23 04:38 Eos % (Auto) 2.5 % 03/03/23 04:38 Baso % (Auto) 0.5 % 03/03/23 04:38 Neut # (Auto) 3.18 10^3/uL (1.8-7.7) 03/03/23 04:38 Lymph # (Auto) 2.3 10^3/uL (0.8-4.8) 03/03/23 04:38 [place] # (Auto) 0.8 10^3/uL (0.2-0.9) 03/03/23 04:38 Eos # (Auto) 0.2 10^3/uL (0.0-0.8) 03/03/23 04:38 Baso # (Auto) 0.0 10^3/uL (0.0-0.1) 03/03/23 04:38 Nucleated RBC % (auto) 0 % 03/03/23 04:38 Nucleated RBCs # 0.0 /100WBC 03/03/23 04:38 PT 13.50 SECONDS (12.1-14.9) 03/02/23 10:40 INR 1.00 (0.8-1.2) 03/02/23 10:40 APTT 26.9 SECONDS (23.9-36.7) 03/02/23 10:40 Sodium 143 mmol/L (136-145) 03/03/23 04:38 Potassium 4.2 mmol/L (3.5-5.1) 03/03/23 04:38 Chloride 106 mmol/L (98-107) 03/03/23 04:38 Carbon Dioxide 28 mmol/L (22-29) 03/03/23 04:38 Anion Gap 13.2 (5-19) 03/03/23 04:38 BUN 18 mg/dL (8-23) 03/03/23 04:38 Creatinine 0.9 mg/dL (0.5-0.9) 03/03/23 04:38 GFR Calculation Not Reportable 03/03/23 04:38 Glucose 105 mg/dL (65-115) 03/03/23 04:38 Estimat Average Glucose 114 03/03/23 04:38 Hemoglobin A1c 5.6 % (4.0-6.0) 03/03/23 04:38 Calculated Osmolality 298 mOsm/kg (285-295) H 03/03/23 04:38 Calcium 8.8 mg/dL (8.5-10.5) 03/03/23 04:38 Total Bilirubin 1.0 mg/dL (0.15-1.2) 03/03/23 04:38 AST 32 U/L (0-32) 03/03/23 04:38 ALT 25 U/L (0-33) 03/03/23 04:38 Alkaline Phosphatase 76 U/L (35-105) 03/03/23 04:38 Total Protein 6.1 g/dL (6.6-8.7) L 03/03/23 04:38 Albumin 4.1 g/dL (3.5-5.2) 03/03/23 04:38 Globulin 2.0 g/dL (1.3-4.6) 03/03/23 04:38 Triglycerides 151 mg/dL (0-150) H 03/03/23 04:38 Cholesterol 205 mg/dL (0-200) H 03/03/23 04:38 LDL Cholesterol, Calc 136 mg/dL (50-129) H 03/03/23 04:38 HDL Cholesterol 39 mg/dL (60-100) L 03/03/23 04:38 LDL/HDL Ratio 3.49 RATIO (0.00-3.22) H 03/03/23 04:38 Cholesterol/HDL Ratio 5.26 mg/dL (0.0-4.40) H 03/03/23 04:38 Urine Color Straw (Yellow) 03/02/23 11:25 Urine Appearance Clear (CLEAR) 03/02/23 11:25 Urine pH 7 (5-7) 03/02/23 11:25 Ur Specific [place] 1.000 (1.005-1.030) L 03/02/23 11:25 Urine Protein Neg (Negative) 03/02/23 11:25 Urine Glucose (UA) Norm (Normal) 03/02/23 11:25 Urine Ketones Negative (Negative) 03/02/23 11:25 Urine Blood 2+ (Negative) H 03/02/23 11:25 Urine Nitrate Negative (Negative) 03/02/23 11:25 Urine Bilirubin Neg (Negative) 03/02/23 11:25 Urine Urobilinogen Norm mg/dL (Negative) 03/02/23 11:25 Ur Leukocyte Esterase Negative (Negative) 03/02/23 11:25 Urine RBC 0-4 /hpf (0-2) H 03/02/23 11:25 Urine WBC None /hpf (0-5) 03/02/23 11:25 Ur Squamous Epith Cells Rare /hpf (0-5) 03/02/23 11:25 Amorphous Sediment Not Reportable 03/02/23 11:25 Urine Bacteria Trace /hpf (NONE) 03/02/23 11:25 Urine Opiates Screen Negative ng/mL (Negative) 03/02/23 11:25 Ur Barbiturates Screen Negative ng/mL (Negative) 03/02/23 11:25 Ur Phencyclidine Scrn Negative ng/mL (Negative) 03/02/23 11:25 Ur Amphetamines Screen Negative ng/mL (Negative) 03/02/23 11:25 U Benzodiazepines Scrn Negative ng/mL (Negative) 03/02/23 11:25 Urine Cocaine Screen Negative ng/mL (Negative) 03/02/23 11:25 U Marijuana (THC) Screen Negative ng/mL (Negative) 03/02/23 11:25 Vitals Last Vital Signs Temp 97.8 F 03/03/23 08:00 Pulse 70 03/03/23 11:06 Resp 15 03/03/23 11:06 BP 138/81 03/03/23 11:06 Pulse Ox 94 03/03/23 11:06 O2 Del Method Room Air 03/03/23 11:06 Discharge Plan Discharge Patient Disposition: Home Condition: Stable Prescriptions: New atorvastatin 40 mg Tablet 40 mg PO BEDTIME 30 Days Qty: 30 0RF aspirin 81 mg Tablet,Delayed Release (Dr/Ec) 81 mg PO DAILY 30 Days Qty: 30 0RF Continued losartan 50 mg tablet 50 mg PO DAILY prednisolone acetate 1 % drops,suspension 1 drp ophthalmic (eye) 6XD metoprolol tartrate 50 mg Tablet 25 mg PO BID bromfenac 0.09 % drops 1 drp ophthalmic (eye) DAILY Discontinued hydrochlorothiazide 12.5 mg tablet 12.5 mg PO DAILY Discharge Orders: Discharge Order (Routine); Ordered 03/03/23 Ordered By: Parrish Toscano Other Ambulatory Orders: MCT/Event Monitor 30 Days (Routine) Timeframe: 1 Day Facility: [facility] - Location: Radiology Ordered By: Parrish Toscano Referrals: Ubaldo Roman MD [Physician] - 2 weeks (cva) Navraro Clayton M.D [Physician] - 1 month Zunilda Og [Primary Care Provider] - Discharge Diet: Cardiac Discharge Activity: Resume usual activity Patient Instructions: Ischemic Stroke (DC), Stroke (DC), Opioid Safety, Pain Management Activity Restrictions/Additional Instructions: - If you have recurrent stroke like symptoms please call 03 03 -If you have any chest pain or palpitations go to the emergency room -Please see primary care provider on Friday for recheck blood pressure -I have temporarily discontinue hydrochlorothiazide, if her blood pressure remains elevated systolic greater than 150 or diastolic greater than 90 can resume -Please follow-up with cardiology for event monitor -Follow-up with neurology for stroke continue aspirin, statin as prescribed - Discharge Attestations Time Spent in Discharge Care*: greater than 30 min Quality Metrics Clinical Quality Measures [ Cerebrovascular Accident { Contraindication to Antithrombotic: None; antithrombotic prescribed; Contraindication to Anticoagulation: Overlap treatment not indicated; Contraindication to Statin: None; Statin prescribed;}] Coding Level of Care Code 73263 Total time (in minutes) for Discharge: 50 Diagnoses Cerebrovascular accident I63.9 Hypertension I10
[2023-03-03 14:17] VITALS: BP 138/81; PULSE 70; RESP 15; TEMP 36.7; O2SAT 94
== END 2023-03-03 13:55 | disposition home or self-care (01) ==
LOC: ER 11:56 → MEDSURG 12:01
PROVIDERS: Admitting Provider Student in an Organized Health Care Education/Training Program; Emergency Provider Emergency Medicine; PCP Registered Nurse; Visit Provider Family Medicine
DX: I63.9 Cerebral infarction, unspecified (principal); I10 Essential (primary) hypertension; R29.702 NIHSS score 2
CPT/HCPCS: 36415; 70450; 70496; 70498; 71045; 80053; 80061; 80306; 81001; 83036; 85025; 85610; 85730; 93005; 93306; 96361; 96374; 97161; 97165; 99285; G0378; Q9967

== ENCOUNTER → 2023-03-11 12:24 | Outpatient (BNVA) | payer MEDICARE, SELFPAY | PROVIDERS: PCP Registered Nurse; Visit Provider Internal Medicine Cardiovascular Disease | DX: I63.9 Cerebral infarction, unspecified (principal); R00.2 Palpitations; R00.1 Bradycardia, unspecified; I48.91 Unspecified atrial fibrillation | CPT/HCPCS: 93270 ==

== ENCOUNTER → 2023-03-26 14:02 | Outpatient (BNVA) | payer MEDICARE, OTHER, SELFPAY | PROVIDERS: PCP Registered Nurse; Visit Provider Internal Medicine | DX: I10 Essential (primary) hypertension (principal); I48.91 Unspecified atrial fibrillation; Z79.01 Long term (current) use of anticoagulants; Z79.82 Long term (current) use of aspirin | CPT/HCPCS: 36415; 80048; 83880; 99204 ==

== ENCOUNTER → 2023-05-22 12:28 | Outpatient (BNVA) | payer MEDICARE, SELFPAY | PROVIDERS: PCP Registered Nurse; Visit Provider Internal Medicine Cardiovascular Disease | DX: R06.02 Shortness of breath (principal); I48.91 Unspecified atrial fibrillation; I10 Essential (primary) hypertension | CPT/HCPCS: 36415; 80048; 83880; 99214 ==

== ENCOUNTER → 2023-11-13 14:47 | Outpatient (BNVA) | payer MEDICARE, SELFPAY | PROVIDERS: PCP Registered Nurse; Visit Provider Internal Medicine Cardiovascular Disease | DX: I48.0 Paroxysmal atrial fibrillation (principal); Z79.01 Long term (current) use of anticoagulants; R06.02 Shortness of breath; G44.52 New daily persistent headache (NDPH); I10 Essential (primary) hypertension; Z86.73 Personal history of transient ischemic attack (TIA), and cerebral infarction without residual deficits | CPT/HCPCS: 99214 ==

== ENCOUNTER 2023-12-11 08:00 | Outpatient (CLI) | payer MEDICARE, SELFPAY ==
[2023-12-11 08:43] VITALS: BMI 29.5
--- NOTE | 2023-12-11 08:44 | ECG_ITS ---
[facility] Test Date: 2023-12-11 Pat Name: Aaron Pruett Department: Room: Gender: Female Brake Tester: Jaqui Terry : 1940 Requested By: Flavio Mclaughlin Order Number: [id number] Olaf MD: TAMANNA MAZARIEGOS Interpretive Statements NAME OF STUDY: LEXISCAN SESTAMIBI STRESS TEST INDICATION: [SOB/Afib, ] NOTE: Please note that this is the electrocardiogram portion of the Lexiscan/Sestamibi stress test. The perfusion scan will be documented separately. DATA: Baseline heart rate was 111 beats per minute. Baseline blood pressure was 133/99 millimeters of mercury. Target heart rate was 137. Maximum heart rate achieved was 158. which was 115% of the predicted target heart rate. Maximum blood pressure was 157/104 millimeters of mercury. The reason for ending the test was completion of the protocol. The patient did not experience any symptoms. ELECTROCARDIOGRAM: BASELINE: Atrial fibrillation. Anterior poor R wave progression could be lead placement EXERCISE: After Lexiscan injection, no ST-T changes suggestive of ischemic noted. No arrhythmia noted. CONCLUSION: Please note due to baseline abnormality of the EKG specificity and sensitivity of the EKG portion of LexiScan MIBI stress test will be low 1. EKG not suggestive of ischemia 2. Lexiscan injection unremarkable. 3. Perfusion scan will be documented separately. Electronically Signed On 12-11-2023 22:00:28 CDT by TAMANNA MAZARIEGOS [email or web address]
--- NOTE | 2023-12-11 08:44 | NMCV_ITS ---
NM saturnino perf SPECT r/s* [id number] Seble, Maxene Age: 83 Gender: F : 1940 Exam Date: 12/11/2023 09:15 Ordering Phys: Flavio Mclaughlin MD ([email or web address]) Technologist: CORIE Hess Exam Location: [facility] Indications: SOB, A-fib STRESS TEST Please [facility] for [facility] findings IMAGE PROTOCOL Rest/Stress 1 Lexiscan Day Radiopharmaceutical Dose (mCi) Administration Site Administered by Rest: Tc-99m 10.5 IV CORIE Hess Sestamibi Stress:Tc-99m 32.4 IV CORIE Hess Sestamibi Rest: 11-Dec-2023 60 Discovery 630 Stress: 11-Dec-2023 30 Discovery 630 0.4mg Lexiscan. Images obtained in supine and prone position. SPECT RESULTS Technical Quality: Good Raw Data Analysis: Normal Image Corrections: No attenuation or motion correction applied Summed Stress Score: 0 Summed Rest Score: 1 Summed Difference Score: 0 PERFUSION FINDINGS Fairly uniform myocardial tracer uptake with no significant perfusion normalities FUNCTIONAL RESULTS (calculated via Gated SPECT) Stress Image LV EF (%): 69 Stress EDV (mL):68 TID: 1.29 Stress ESV (mL):21 FUNCTIONAL FINDINGS: Segmental wall motion analysis revealing no gross wall motion abnormalities IMPRESSIONS 1. Fairly uniform myocardial tracer uptake with no significant perfusion abnormalities 2. Normal LV ejection fraction of 69%. 3. LV wall motion analysis revealing no gross wall motion abnormalities. 4. Normal LV volume 5. Elevated transient ischemic dilatation ratio 1.29, may suggest endocardial ischemia. However the positive predictive value of this finding is low in the absence of any other objective abnormal findings. Clinical correlation is recommended 6. No similar previous studies are available for comparison Dr Flavio Mclaughlin MD [facility] (Electronically Signed) Final Date: 14 December 2023 21:01 S
[2023-12-11] MEDS: regadenoson 0.4 Mg/5 ml Syringe 0.400000000000000022 MG IVP (10:19)
[2023-12-11 10:42] VITALS: BP 137/100; PULSE 106
--- NOTE | 2023-12-11 10:45 | PC.NURSE ---
Stress test Pre - stress test patient in afib HR 80's-100. After administration of lexiscan patient afib with RVR. After 9 minutes of recovery post stress test afib rate is 105-120. Patient reports taking metoprolol 25mg BID and has not taken this AM dose. Verbal orders received from Dr. Penn to give Metoprolol 37.5mg PO one time. Patient asymptomatic, denies CP or shortness of breath. BP 137/100.
[2023-12-11] MEDS: metoprolol tartrate 25 mg Tablet 37.5 MG PO (10:50)
--- NOTE | 2023-12-11 11:41 | PC.NURSE ---
Heart rate/rhythm at end of second Nuclear scan afib with rate 89-103.
== END 2023-12-11 08:01 | disposition home or self-care (01) ==
PROVIDERS: PCP Registered Nurse; Visit Provider Internal Medicine Cardiovascular Disease
DX: Z98.61 Coronary angioplasty status (principal); R94.39 Abnormal result of other cardiovascular function study
CPT/HCPCS: 36415; 78452; 93017; 96374; A9500; J2785

== ENCOUNTER 2023-12-17 09:32 | Outpatient (CLI) | payer MEDICARE, SELFPAY ==
--- NOTE | 2023-12-17 10:00 | CT_ITS ---
WS: [id number] CT HEAD TECHNIQUE: Noncontrast CT of the head obtained from the skullbase to the vertex. CLINICAL INFORMATION: head ache, on oral anticoagulant COMPARISON: CT 03/02/2023 DLP: 1008.[address] scans at [facility] use at least one of these dose optimization techniques: automated e xposure control; mA and/or kV adjustment per patient size (includes targeted exams where dose is matc hed to clinical indication); or iterative reconstruction. FINDINGS: No evidence of intracranial hemorrhage or mass effect. Ventricular system and basal cisterns are pollard nt. Mild small vessel changes with mild parenchymal volume loss. Prominence of the ventricular system unchanged since 03/02/2023. Mild bowing of the third ventricle. No evidence of transependymal edema. Intracranial vascular calcification. Paranasal sinuses and mastoid air cells are well aerated. .Normal visualized soft tissues. CT/CT head wo con* [id number] IMPRESSION: 1. No evidence of intracranial hemorrhage or mass effect. 2. Vascular calcification. 3. Stable prominence of the ventricular system can be seen with normal pressur e hydrocephalus in the appropriate clinical setting. No evidence of transependy mal edema. Consider neurology consultation if symptomatic. 4. No other suspicious findings.
== END 2023-12-17 09:33 | disposition home or self-care (01) ==
LOC: RAD 09:32
PROVIDERS: PCP Registered Nurse; Visit Provider Internal Medicine Cardiovascular Disease
DX: G44.52 New daily persistent headache (NDPH) (principal); Z79.01 Long term (current) use of anticoagulants; I67.2 Cerebral atherosclerosis
CPT/HCPCS: 70450

== ENCOUNTER → 2024-06-01 10:02 | Outpatient (BNVA) | payer MEDICARE, SELFPAY | PROVIDERS: PCP Registered Nurse; Visit Provider Internal Medicine Cardiovascular Disease | DX: R07.9 Chest pain, unspecified (principal); I48.91 Unspecified atrial fibrillation; I48.92 Unspecified atrial flutter; N18.9 Chronic kidney disease, unspecified; E78.5 Hyperlipidemia, unspecified; R06.02 Shortness of breath | CPT/HCPCS: 36415; 80048; 80076; 84443; 93005; 99204 ==

== ENCOUNTER 2024-06-25 09:34 | Day surgery (SDC) | payer MEDICARE, SELFPAY ==
[2024-06-25 09:50] VITALS: BP 167/109; PULSE 71; RESP 16; TEMP 36.3; O2SAT 95
--- NOTE | 2024-06-25 10:20 | ECG_ITS ---
[facility]: 2024-06-25 Pat Name: Aaron Pruett Department: Room: Gender: Female Senior Energy Consultant: : 1940 Requested By: Flavio Mclaughlin Order Number: [id number] Olaf MD: Flavio Mclaughlin M.D. Measurements Intervals [place] Rate: 61 P: 0 ND: 0 QRS: 12 QRSD: 93 T: -34 QT: 390 QTc: 396 Interpretive Statements ATRIAL FIBRILLATION With a slow ventricular response rate LOW QRS VOLTAGE IN PRECORDIAL LEADS [QRS DEFLECTION < 1.0 mV IN CHEST LEADS] NONSPECIFIC ST & T-WAVE ABNORMALITY ABNORMAL RHYTHM ECG Compared to ECG 06/01/2024 10:08:08 No significant changes Electronically Signed On 06-25-2024 21:47:05 SHUTTLE REPAIRER by Flavio Mclaughlin M.D. [email or web address]
--- NOTE | 2024-06-25 10:38 | W.PM.OPSUD ---
Surgery/Procedure H&P Update DATE OF PROCEDURE: June 25, 2024 DATE H&P PERFORMED: 06/01/24 H&P UPDATE INFORMATION: I have reviewed H&P completed within last 30 days, I have examined patient prior to procedure and No changes to prior documentation PREOP DIAGNOSIS: Atrial fibrillation, symptomatic PRIMARY INDICATION FOR PROCEDURE: Symptomatic atrial fibrillation with intermittent rapid ventricular rate PLANNED PROCEDURE: Operation Date: 06/25/24 12:30 Proposed Procedures p Cardioversion(Not Applicable) - Flavio Mclaughlin MD Will be provided by the anesthesia service. Please refer to report
--- NOTE | 2024-06-25 10:53 | ANES.PREANE2 ---
Pre-Anesthetic Assessment Height/Weight: Height 1.68 m Weight 83.915 kg Preop Diagnosis: Atrial fibrillation, symptomatic Operation Date: 06/25/24 12:30 Proposed Procedures p Cardioversion(Not Applicable) - Flavio Mclaughlin MD Familial anesthetic complications: NOne Was Beta Khloe taken within 24 hours: N/A Was Clonidine taken within 24 hours: N/A Last intake: Intake Last Liquid Date 06/24/24 Last Liquid Time 22:30 Last Solid Date 06/24/24 Last Solid Time 20:00 Social No alcohol and No tobacco Exam alert, oriented x 3, clear to auscultation bilaterally and regular rate & rhythm CV/HEM Atrial Fibrillation and Hypertension Neuropsych Cerebrovascular Accident Anesthetic Plan ASA status: 4 Anesthesia: MAC Risk of > 500 ml blood loss (7ml/kg in children): No Medications/Allergies Home Medications Medication Instructions Recorded Confirmed Last Taken Type bromfenac 0.09 % eye drops 1 drp ophthalmic (eye) DAILY 03/02/23 06/21/24 06/24/24 History prednisolone acetate 1 % eye 1 drp ophthalmic (eye) 6XD 03/02/23 06/21/24 06/24/24 History drops,suspension losartan 50 mg tablet 50 mg PO DAILY 03/26/23 06/21/24 06/24/24 History atorvastatin 40 mg tablet 40 mg PO BEDTIME #90 tabs 03/27/23 06/21/24 06/24/24 Rx metoprolol tartrate 50 mg tablet 25 mg PO DAILY 05/22/23 06/21/24 06/24/24 History furosemide 20 mg tablet See Rx Instructions .Route 03/17/24 06/21/24 06/24/24 Rx .COMPLEX #270 tabs amiodarone 400 mg tablet 400 mg PO BID #30 tabs 06/01/24 06/21/24 06/24/24 Rx levothyroxine 100 mcg capsule 100 mcg PO DAILY #90 caps 06/07/24 06/21/24 06/24/24 Rx apixaban 5 mg tablet (Eliquis) 5 mg PO BID 06/21/24 06/21/24 06/25/24 History potassium chloride 10 mEq 10 meq PO DAILY 06/21/24 06/21/24 06/24/24 History tablet,extended release Allergies Allergy/AdvReac Type Severity Reaction Status Date / Time No Known Allergies Allergy Verified 06/01/24 09:54 [facility] Anesthesia Medical History Hypertension Social History Smoking and tobacco/nicotine status: never used tobacco/nicotine Data Anesthesia Cardiac Studies: Echocardiogram 03/02/23 Sestamibi Stress Test (Cardiology) 12/11/23 Cardiac Event Monitor 03/11/23
--- NOTE | 2024-06-25 11:07 | SUR.OPER ---
Cardioversion 200J followed by 250 J
--- NOTE | 2024-06-25 11:08 | SUR.OPER ---
Cardioversion 360 J
[2024-06-25 11:16] VITALS: BP 107/59; PULSE 52; RESP 16; TEMP 36.2; O2SAT 94
--- NOTE | 2024-06-25 11:30 | ECG_ITS ---
[facility]24[facility]25 Pat Name: Aaron Pruett Department: Room: Gender: Female Agricultural Education Teacher: : 1940 Requested By: Flavio Mclaughlin Order Number: [id number] Reading MD: Flavio Mclaughlin M.D. Measurements Intervals [place] Rate: 48 P: 70 MI: 179 QRS: 17 QRSD: 90 T: 4 QT: 467 QTc: 419 Interpretive Statements SINUS BRADYCARDIA LOW QRS VOLTAGE IN PRECORDIAL LEADS [QRS DEFLECTION < 1.0 mV IN CHEST LEADS] NONSPECIFIC T-WAVE ABNORMALITY Compared to ECG 06/25/2024 10:20:33 Atrial fibrillation no longer present T-wave abnormality still present Electronically Signed On 06-25-2024 21:47:10 ROBOTIC WELDING OPERATOR by Flavio Mclaughlin M.D. [email or web address]
--- NOTE | 2024-06-25 11:30 | PM.OP ---
Operative Report Date of procedure: June 25, 2024 Surgeon: Flavio Mclaughlin MD Procedure: Electrical cardioversion report Preprocedure diagnoses: Symptomatic atrial fibrillation Brief history: Patient with intermittent atrial fibrillation for the last 1 year. She was found to be very symptomatic with a rapid heart rate. She was started on p.o. amiodarone recently in preparation for a cardioversion. She has a history of TIA, year ago. Has not had any recurrence since being on Eliquis. She has been taking Eliquis for more than a year. Location of the procedure: Outpatient Surgery Electrode application: Anteroposterior Electrical energy applied: 200, 250 and 360 Number of shocks: Total of 3 Final rhythm: Sinus bradycardia Final blood pressure: 120/70 Complications: None Recommendation(s): Cut back on the amiodarone to 200 mg p.o. daily. Continue other medications as it is. Advised to watch the heart rate and blood pressure closely. Appointment the [facility] in 1 week to be seen by the nurse practitioner
[2024-06-25 11:31] VITALS: BP 129/94; PULSE 59; RESP 16; O2SAT 96
[2024-06-25 11:43] VITALS: BP 120/90; PULSE 52; RESP 16; O2SAT 96
--- NOTE | 2024-06-25 11:50 | ANE.PACU2 ---
Inpatient post-anesthesia follow up: Airway intact: Yes Vital signs: Temperature 97.2 F Pulse Rate 52 Respiratory Rate 16 Blood Pressure 120/90 Pulse Oximetry 96 Oxygen Delivery Me thod Room Air Oxygen Flow Rate Fraction of Inspir ed Oxygen Hydration adequate: Yes Nausea and vomiting: No Pain level: 1 Mental status: Baseline
== END 2024-06-25 11:52 | disposition home or self-care (01) ==
PROVIDERS: PCP Registered Nurse; Visit Provider Internal Medicine Cardiovascular Disease
PROC: 5A2204Z Restoration of Cardiac Rhythm, Single (ICD-10-PCS; principal; 2024-06-25 12:30)
DX: I48.91 Unspecified atrial fibrillation (principal); I10 Essential (primary) hypertension; Z86.73 Personal history of transient ischemic attack (TIA), and cerebral infarction without residual deficits
CPT/HCPCS: 92960; 93005; J2704

== ENCOUNTER → 2024-07-05 14:42 | Outpatient (BNVA) | payer MEDICARE, SELFPAY | PROVIDERS: PCP Registered Nurse; Visit Provider Nurse Practitioner Family | DX: I48.0 Paroxysmal atrial fibrillation (principal) | CPT/HCPCS: 93005; 99214 ==

== ENCOUNTER → 2024-10-11 14:29 | Outpatient (BNVA) | payer MEDICARE, SELFPAY | PROVIDERS: PCP Registered Nurse; Visit Provider Internal Medicine Cardiovascular Disease | DX: I48.0 Paroxysmal atrial fibrillation (principal); Z79.01 Long term (current) use of anticoagulants; I11.0 Hypertensive heart disease with heart failure; I50.33 Acute on chronic diastolic (congestive) heart failure; Z79.899 Other long term (current) drug therapy; Z86.73 Personal history of transient ischemic attack (TIA), and cerebral infarction without residual deficits | CPT/HCPCS: 36415; 80048; 80076; 84443; 93005; 99214 ==

== ENCOUNTER → 2025-05-27 11:32 | Outpatient (BNVA) | payer MEDICARE, SELFPAY | PROVIDERS: PCP Registered Nurse; Visit Provider Nurse Practitioner Family | DX: I48.0 Paroxysmal atrial fibrillation (principal); Z79.01 Long term (current) use of anticoagulants; I11.0 Hypertensive heart disease with heart failure; I50.33 Acute on chronic diastolic (congestive) heart failure; R00.1 Bradycardia, unspecified; I49.8 Other specified cardiac arrhythmias; R94.31 Abnormal electrocardiogram [ECG] [EKG] | CPT/HCPCS: 93005; 99214 ==